=== PATIENT | female | born 1975 | race Caucasian/White ===

== ENCOUNTER → 2018-11-25 11:14 | Outpatient (CLI) | payer OTHER, SELFPAY ==
[2018-11-25 13:22] LABS: Urine N gonorrhoeae NOT DETECTED
[2018-11-25 13:25] LABS: Urine Chlamydia NOT DETECTED
== END ==
PROVIDERS: PCP Physician Assistant; Visit Provider Family Medicine
DX: Z11.3 Encounter for screening for infections with a predominantly sexual mode of transmission (principal)
CPT/HCPCS: 87491; 87591

== ENCOUNTER → 2018-12-06 09:32 | Outpatient (CLI) | payer OTHER, SELFPAY ==
--- NOTE | 2018-12-06 09:33 | DI.US.S_ITS ---
PROCEDURE: US PELVIC COMPLETE INDICATIONS: INTRAUTERINE DEVICE COMPLICATION TECHNIQUE: Real-time scanning was performed of the pelvic organs, with image documentation. Additional endovaginal scanning was necessary due to incomplete visualization of the adnexal and endometrial structures by transabdominal scanning. COMPARISON: None. FINDINGS: Transabdominal scanning: Limited scanning through the kidneys shows no hydronephrosis. No pathologic free abdominal or pelvic fluid. Endovaginal scanning: Uterus: Uterus is normal in size at 7.9 x 3.6 x 4.6 cm. The endometrium measures 6 mm in combined thickness. There is a 6 mm hyperechoic linear structure in the lower uterine segment 3.5 cm above the internal loss in the left aspect of the uterus embedded into the lateral wall of the myometrium. Ovaries: Right ovary measures 2.7 x 2.0 x 1.9 cm. There is a 2.1 x 1.5 x 1.5 cm thickwalled cyst in the left ovary. Left ovary measures 2.0 x 1.2 x 1.7 cm, which is in the lateral superior aspect of the cul-de-sac and only seen on transabdominal scanning. IMPRESSION: 1. A 6 mm hyperechoic linear structure is embedded in the left uterine wall, suspicious for retained foreign body (segment of the IUD). 2. A 2.1 x 1.5 x 1.5 thickwalled cyst in the right ovary, which may be a corpus luteal cyst or hemorrhagic cyst. If clinically indicated, a followup ultrasound may be considered in 6 weeks. Dictated by: Sam Crawford M.D. on 12/06/2018 at 10:54 Approved by: Sam Crawford M.D. on 12/06/2018 at 11:01
== END ==
PROVIDERS: PCP Physician Assistant; Visit Provider Family Medicine
DX: T83.9XXA Unspecified complication of genitourinary prosthetic device, implant and graft, initial encounter (principal); N83.201 Unspecified ovarian cyst, right side
CPT/HCPCS: 76830; 76856

== ENCOUNTER 2018-12-26 12:13 | Day surgery (SDC) | payer OTHER, SELFPAY ==
[2018-12-13 15:13] VITALS: BMI 34.8
[2018-12-26] VITALS (8 sets, daily range): BP systolic 87–106; BP diastolic 57–67; PULSE 47–61; RESP 14–17; TEMP 36.2–36.7; O2SAT 91–100; BMI 34.8
[2018-12-26] MEDS: LACTATED RINGERS 1,000 ML 42 ML IV (13:03)
--- NOTE | 2018-12-26 13:24 | PM.PREOP ---
Pre-operative Note Interval Note History & Physical reviewed/Exam performed by Physician: Yes Changes to H&P: No
--- NOTE | 2018-12-26 13:24 | PM.GYNHP.1 ---
History of Present Illness Reason for admission: other (Retained arm ParaGard IUD after removal, wish for replacement of ParaGard IUD) Narrative: Lenore Rose is a 43 year old female with a retained arm of ParaGard IUD after removal, requesting removal of the arm and replacement of ParaGard IUD [facility] Family History (Updated 05/13/16 @ 00:00 by Alicia Hess PA-C) Mother Osteoporosis Social History household members: spouse Smoking Status: Former smoker Tobacco: How many years used: 8 second hand exposure: No alcohol intake: current substance use type: does not use Family History (Updated 05/13/16 @ 00:00 by Alicia Hess PA-C) Mother Osteoporosis Social History household members: spouse Smoking Status: Former smoker Tobacco: How many years used: 8 second hand exposure: No alcohol intake: current substance use type: does not use Meds Home Medications Medication Instructions Recorded Confirmed Type [IUD - 10 YEAR] #0 05/13/16 History Allergies Allergy/AdvReac Type Severity Reaction Status Date / Time amoxicillin [AMOXICILLIN] Allergy Intermediate RASH ALL Verified 11/25/18 10:37 OVER MY ENTIRE BODY Penicillins [PENICILLINS] Allergy Intermediate RASH ALL Verified 11/25/18 10:37 OVER MY ENTIRE BODY Review of Systems Review of Systems Patient with irregular menses, no abdominal pain All systems reviewed & are unremarkable except as noted in HPI and below Exam Vital Signs (past 8 hours): - 12/26/18 12:55 Temperature 98.1 F Pulse Rate 50 L Respiratory Rate 16 Blood Pressure 89/57 L Pulse Oximetry 100 Oxygen Delivery Method Room Air Narrative Exam Narrative: HEENT exam within normal limits. Lungs are clear to auscultation percussion. Heart is regular rate and rhythm no S3-S4 or murmurs. Abdomen is soft, nontender. Pelvic exam not repeated but on previous exam normal external genitalia, vagina, cervix. Uterus is not enlarged, nontender. By ultrasound the IUD arm is on the anterior aspect of the uterus in the muscle wall above the internal os no adnexal masses tenderness Objective Imaging US - abdomen: Radiologist's impression: Retained arm of the IUD in the anterior wall of the uterus Assessment & Plan (1) Malpositioned IUD: Current visit: Yes Status: Acute (2) Encounter for IUD insertion: Current visit: Yes Status: Acute Assessment & Plan narrative: Patient with retained arm of ParaGard IUD after removal. Plan is to do a hysteroscopy if necessary resect a small area of the uterus to remove the retained IUD fragment. If this is successful the patient wishes to have a new ParaGard IUD placed. If not she does not want the IUD placed. The consent form was reviewed with the patient with the small risk of perforation of the uterus that would require laparoscopy and possible laparotomy to repair damage to any internal structures such as the bowel, bladder, ureters. Not enough risk for infection to require antibiotics. Reaction to medication or anesthetic. Consent form was signed. Questions were answered.
--- NOTE | 2018-12-26 14:28 | SUR.OPER ---
Lithotomy on padded OR bed, head on pillow, arms secured on padded arm boards at <90 degrees abduction. Legs secured in padded yellow fins stirrups.
--- NOTE | 2018-12-26 14:42 | PM.OP.1 ---
Operative Date/Time/Diagnoses Date of procedure: 12/26/18 Time of procedure: 14:42 Pre-op diagnosis: Retained arm of IUD, wish for new ParaGard IUD to be placed Post-op diagnosis: same Procedure & Clinicians Procedure: Hysteroscopy with removal of retained ParaGard arm and placement of new ParaGard IUD Same procedure as scheduled: Yes Indications: Patient who on removal of her prior ParaGard IUD had an arm that did not come off at the time of the rest of the IUD. If successful removing the arm patient wishes to have a new ParaGard IUD placed Surgeon: Lisa Ford Click Yes if Unassisted: Yes Anesthesia Type: General Operative Notes Findings: Normal exam under anesthesia, Partially imbedded arm of the ParaGard IUD, entire arm was resected without difficulty, successful placement of new ParaGard IUD Closure Type: not applicable Specimen(s): none sent Prosthetic devices, grafts, tissues, transplants, or devices: ParaGard IUD Estimated Blood Loss (mL): 20 Procedure in detail: The patient was brought to the operating room where she underwent general anesthesia. She was placed in low stirrups She was prepped and draped in usual sterile fashion with warming in place with blankets, no antibiotics were indicated, due to the short nature of the procedure pulsatile stockings were not indicated.. A single-tooth tenaculum was placed on the anterior lip of the cervix and the uterus dilated to #8 Hegar dilator. The hysteroscope was placed into the uterus with a sorbitol solution running and under constant suction. The IUD arm was seen and the resecting loop was activated which the IUD arm stuck to the resecting loop and was easily removed. The uterus was sounded and the new ParaGard IUD was placed and strings cut to 4 cm. The patient went to recovery room in good condition counts of instruments and sponges were correct. The sorbitol solution I=O approximately 1000 mL. Complications: none Condition: stable Disposition: same day surgery Plan for aftercare: Follow-up as needed.
--- NOTE | 2018-12-26 14:43 | SUR.PHASEI ---
report given to KENNEDY Almanza. Transferred care of pt to KENNEDY Almanza in stable condition at this time.
[2018-12-26] MEDS: KETOROLAC 30 MG/ML VIAL IV (14:45)
--- NOTE | 2018-12-26 15:40 | SUR.PHASEII ---
pt observed to have moderate amount of bright red blood on amber-pad upon ambulating to the bathroom. Dr. Ford at bedside to observe drainage amount on amber-pad. Per Dr. Ford, pt ok to be discharged to home at this time. Pt instructed to call if saturating more than one pad an hour. pt and pt voiced understanding.
== END 2018-12-26 15:44 | disposition home or self-care (01) ==
PROVIDERS: PCP Physician Assistant; Visit Provider Specialist
PROC: (CPT 58562; principal; 2018-12-26 13:30)
DX: T83.32XA Displacement of intrauterine contraceptive device, initial encounter (principal); Z30.430 Encounter for insertion of intrauterine contraceptive device
CPT/HCPCS: 58562; 58300; J1885; J2250; J2405; J2704; J3010; J7300

== ENCOUNTER 2018-12-26 21:04 | Emergency (ER) | payer OTHER, SELFPAY ==
--- NOTE | 2018-12-26 21:08 | DI.US.S_ITS ---
PROCEDURE: US PELVIC COMPLETE INDICATIONS: BLEEDING, CRAMPING TECHNIQUE: Real-time scanning was performed of the pelvic organs, with image documentation. Additional endovaginal scanning was necessary due to incomplete visualization of the adnexal and endometrial structures by transabdominal scanning. COMPARISON: [facility], , PELVIC COMPLETE, 12/06/2018, 9:57. FINDINGS: Transabdominal scanning: Limited scanning through the kidneys shows no hydronephrosis. No pathologic free abdominal or pelvic fluid. Anteverted anteflexed uterus demonstrates an IUD in expected location. Endovaginal scanning: Uterus: Uterus is normal in size at 8.1 x 3.6 x 4.7 cm. The endometrium is not thickened and contains an IUD in appropriate position. There is small amount of heterogeneous, avascular material within the fundal endometrium. Ovaries: The right ovary measures 2.8 x 2.2 x 2.4 cm and contains a dominant follicle measuring 15 mm. There is appropriate vascularity to the right ovary. No adjacent fluid. Left ovary was not identified. No unusual adnexal masses or free fluid. IMPRESSION: 1. IUD in expected location with small amounts of adjacent heterogeneous material, potentially blood products. No thickening of the endometrium. 2. Physiologic right ovarian follicles. Concordant with preliminary results. Dictated by: Marilou Whaley M.D. on 12/27/2018 at 9:12 Approved by: Marilou Whaley M.D. on 12/27/2018 at 9:16
[2018-12-26 21:11] VITALS: BP 129/77; PULSE 85; RESP 20; TEMP 36.7; O2SAT 98; BMI 31.7
--- NOTE | 2018-12-26 21:58 | PC.NURSE ---
Just had an IUD removed in the OR due to it being partially embedded. Had a new one placed at same time. Has been bleeding copiously ever since getting home. Using a large pad an hour. Denies any significant pain. Denies dizziness or lightheadedness.
[2018-12-26 22:21] LABS: Hematocrit 38.7 % (36-46)
--- NOTE | 2018-12-26 22:28 | ED.FEMALEGU ---
HPI - Female Genitourinary General Chief complaint: Vaginal Bleeding Stated complaint: BLEEDING AFTER SURGERY Time Seen by Provider: 12/26/18 21:06 Source: patient and family Mode of arrival: ambulatory Limitations: no limitations History of Present Illness HPI Narrative: 43-year-old female nonsmoker presents with her in the chief complaint of significant vaginal bleeding, as much as 2-3 pads per hour for the past few hours. She was seen by OB Gyne earlier today and had an IUD that had been causing her trouble removed and a new 1 replaced. The procedure went finding well and she was discharged without any trouble. She started developing increasingly heavy bleeding over the past few hours and was told to present to the emergency department when she called nursing hotline. She has mild to moderate generalized pelvic cramping. She is not dizzy nor weak or lightheaded. MD Complaint: vaginal bleeding Onset (ago): hour(s) Location: suprapubic Severity: moderate Quality: Aching Duration: constant Relieving factors: none Exacerbating factors: none Vaginal discharge: dark blood and blood clots Associated symptoms: denies other symptoms Related Data Home Medications Medication Instructions Recorded Confirmed [IUD - 10 YEAR] #0 05/13/16 Allergies Allergy/AdvReac Type Severity Reaction Status Date / Time amoxicillin [AMOXICILLIN] Allergy Intermediate RASH ALL Verified 11/25/18 10:37 OVER MY ENTIRE BODY Penicillins [PENICILLINS] Allergy Intermediate RASH ALL Verified 11/25/18 10:37 OVER MY ENTIRE BODY Review of Systems Constitutional Denies chills, Denies fever(s), Denies lethargy and Denies weakness Eyes Denies change in vision, Denies eye discharge, Denies irritation and Denies loss of vision ENT Ears, Nose, Mouth, and Throat: Denies change in voice, Denies neck pain and Denies sore throat Cardiovascular Denies chest pain, Denies irregular heart rhythm, Denies lightheadedness, Denies palpitations, Denies dyspnea, Denies dyspnea on exertion and Denies orthopnea Respiratory Denies cough, Denies dyspnea, Denies dyspnea on exertion and Denies wheezing Gastrointestinal Gastrointestinal: Denies abdominal pain, Denies change in bowel habits, Denies diarrhea, Denies nausea and Denies vomiting Genitourinary Reports abnormal vaginal bleeding, Denies hematuria, Denies flank pain, Denies urinary incontinence and Denies urinary urgency Musculoskeletal Denies neck pain Integumentary/Breasts Denies pruritus, Denies erythema, Denies rash and Denies wounds Neurologic Denies confusion, Denies loss of vision and Denies weakness Psychiatric Denies anxiety, Denies confusion, Denies depression, Denies homicidal ideation and Denies suicidal ideation Endocrine Denies palpitations Hematologic/Lymphatic Denies easy bruising Allergic/Immunologic Denies wheezing PFSH Family History (Updated 05/13/16 @ 00:00 by Alicia Hess PA-C) Mother Osteoporosis Social History household members: spouse Smoking Status: Former smoker Tobacco: How many years used: 8 second hand exposure: No alcohol intake: current substance use type: does not use Family History Mother Osteoporosis Social History household members: spouse Smoking Status: Former smoker Tobacco: How many years used: 8 second hand exposure: No alcohol intake: current substance use type: does not use Exam Narrative Exam Narrative: GENERAL: This is a well-nourished, well-developed patient, in mild distress. HEAD: Atraumatic. Normocephalic. No temporal or scalp tenderness. EYES: Pupils equal round and reactive. Extraocular motions intact. No scleral icterus. No injection or drainage. ENT: Nose without bleeding, purulent drainage or septal hematoma. Throat without erythema, tonsillar hypertrophy or exudate. Uvula midline. Airway patent. NECK: Trachea midline. No JVD or lymphadenopathy. Supple, nontender, no meningeal signs. CARDIOVASCULAR: Regular rate and rhythm without murmurs, gallops, or rubs. RESPIRATORY: Clear to auscultation. Breath sounds equal bilaterally. No wheezes, rales, or rhonchi. GASTROINTESTINAL: Abdomen soft, non-tender, nondistended. No hepato-splenomegaly, or palpable masses. No guarding. PELVIC: Steady dark blood VS cervical os, IUD string visible EXTREMITIES: No clubbing, cyanosis, or edema. No joint tenderness, effusion, or edema noted. BACK: Nontender without deformity or crepitance. No flank tenderness. NEURO: AOx3. SKIN: No rash or erythema. Initial Vital Signs Initial Vital Signs: Vital Signs Temperature 98.0 F 12/26/18 21:11 Pulse Rate 85 12/26/18 21:11 Respiratory Rate 20 06/24/19 21:11 Blood Pressure 129/77 12/26/18 21:11 Pulse Oximetry 98 12/26/18 21:11 Course Orders Ordered: ED Orders 12/26/18 21:08 US pelvic complete Stat 12/26/18 22:15 Hemoglobin and Hematocrit Stat Discontinued Medications Indomethacin (Indocin) 50 mg PO NOW ONE Stop: 12/26/18 22:54 Last Admin: 12/26/18 23:13 Dose: 50 mg Methylergonovine Maleate (Methergine) 0.2 mg IM NOW ONE Stop: 12/26/18 22:54 Last Admin: 12/26/18 23:13 Dose: 0.2 mg Consultations Consultation #1: discussion with Dr. Salguero, whom has contacted Dr. Rodriguez to discuss the case. He recommends Methergine 0.2mg IM and Indomethacin 50mg PO and to follow up in the [facility] Vital Signs - 8 hr 12/26/18 21:11 12/26/18 22:40 12/26/18 23:58 Temperature 98.0 F Pulse Rate 85 72 80 Respiratory Rate 20 16 18 Blood Pressure 129/77 106/56 L Blood Pressure [Left Arm] 121/55 L Pulse Oximetry 98 94 96 MDM - Female Genitourinary Lab Data Result diagrams: 12/26/18 22:15 Lab Results 12/26/18 Range/Units 22:15 Hgb 13.0 (12.0-16.0) g/dL Hct 38.7 (36-46) % MDM Narrative Medical decision making narrative: Patient presents with heavy vaginal bleeding and some mild cramping this evening. She had her IUD replaced earlier today. She had contacted Dr. Salguero and was instructed to present to the ED. Patient is hemodynamically stable and H/H is stable. Bleeding is moderate and dark. US is unremarkable. Consultation with chief port director and recommendations followed. Patient and have had their questions answered to their apparent satisfaction. They understand the discharge diagnosis and plan. They understand return precautions. Discharge Plan Departure Patient Disposition: Home Clinical Impression: Vaginal bleeding Discharge Date/Time: 12/26/18 23:58 Interventions: ED Discharge Assessment Last Done: 12/26/18 23:58 Instructions: DI for Vaginal Bleeding Activity Restrictions/Additional Instructions: *You have been diagnosed with [vaginal bleeding and cramping after IUD change] *What to do: *Take medications as directed: Tylenol or Motrin for pain *Follow up with Dr. Rodriguez in the office tomorrow, call for an appointment. He suggests calling at 8am. Let them know you were seen in the Emergency Department and that we ask that you be seen in follow up *Return to ER if you should have any new, worsening or concerning symptoms Prescriptions: No Action [IUD - 10 YEAR] Qty: 0 RF: 0 Referrals: Alicia Hess PA-C [Primary Care Provider] -
--- NOTE | 2018-12-26 22:36 | ED_ITS ---
HPI - Female Genitourinary General Chief complaint: Vaginal Bleeding Stated complaint: BLEEDING AFTER SURGERY Time Seen by Provider: 12/26/18 21:06 Source: patient and family Mode of arrival: ambulatory Limitations: no limitations History of Present Illness HPI Narrative: 43-year-old female nonsmoker presents with her in the chief complaint of significant vaginal bleeding, as much as 2-3 pads per hour for the past few hours. She was seen by OB Gyne earlier today and had an IUD that had been causing her trouble removed and a new 1 replaced. The procedure went finding well and she was discharged without any trouble. She started developing increasingly heavy bleeding over the past few hours and was told to present to the emergency department when she called nursing hotline. She has mild to moderate generalized pelvic cramping. She is not dizzy nor weak or lightheaded. MD Complaint: vaginal bleeding Onset (ago): hour(s) Location: suprapubic Severity: moderate Quality: Aching Duration: constant Relieving factors: none Exacerbating factors: none Vaginal discharge: dark blood and blood clots Associated symptoms: denies other symptoms Related Data Home Medications Medication Instructions Recorded Confirmed [IUD - 10 YEAR] #0 05/13/16 Allergies Allergy/AdvReac Type Severity Reaction Status Date / Time amoxicillin [AMOXICILLIN] Allergy Intermediate RASH ALL Verified 11/25/18 10:37 OVER MY ENTIRE BODY Penicillins [PENICILLINS] Allergy Intermediate RASH ALL Verified 11/25/18 10:37 OVER MY ENTIRE BODY Review of Systems Constitutional Denies chills, Denies fever(s), Denies lethargy and Denies weakness Eyes Denies change in vision, Denies eye discharge, Denies irritation and Denies loss of vision ENT Ears, Nose, Mouth, and Throat: Denies change in voice, Denies neck pain and Denies sore throat Cardiovascular Denies chest pain, Denies irregular heart rhythm, Denies lightheadedness, Denies palpitations, Denies dyspnea, Denies dyspnea on exertion and Denies orthopnea Respiratory Denies cough, Denies dyspnea, Denies dyspnea on exertion and Denies wheezing Gastrointestinal Gastrointestinal: Denies abdominal pain, Denies change in bowel habits, Denies diarrhea, Denies nausea and Denies vomiting Genitourinary Reports abnormal vaginal bleeding, Denies hematuria, Denies flank pain, Denies urinary incontinence and Denies urinary urgency Musculoskeletal Denies neck pain Integumentary/Breasts Denies pruritus, Denies erythema, Denies rash and Denies wounds Neurologic Denies confusion, Denies loss of vision and Denies weakness Psychiatric Denies anxiety, Denies confusion, Denies depression, Denies homicidal ideation and Denies suicidal ideation Endocrine Denies palpitations Hematologic/Lymphatic Denies easy bruising Allergic/Immunologic Denies wheezing PFSH Family History (Updated 05/13/16 @ 00:00 by Alicia Hess PA-C) Mother Osteoporosis Social History household members: spouse Smoking Status: Former smoker Tobacco: How many years used: 8 second hand exposure: No alcohol intake: current substance use type: does not use Family History Mother Osteoporosis Social History household members: spouse Smoking Status: Former smoker Tobacco: How many years used: 8 second hand exposure: No alcohol intake: current substance use type: does not use Exam Narrative Exam Narrative: GENERAL: This is a well-nourished, well-developed patient, in mild distress. HEAD: Atraumatic. Normocephalic. No temporal or scalp tenderness. EYES: Pupils equal round and reactive. Extraocular motions intact. No scleral icterus. No injection or drainage. ENT: Nose without bleeding, purulent drainage or septal hematoma. Throat without erythema, tonsillar hypertrophy or exudate. Uvula midline. Airway patent. NECK: Trachea midline. No JVD or lymphadenopathy. Supple, nontender, no meningeal signs. CARDIOVASCULAR: Regular rate and rhythm without murmurs, gallops, or rubs. RESPIRATORY: Clear to auscultation. Breath sounds equal bilaterally. No wheezes, rales, or rhonchi. GASTROINTESTINAL: Abdomen soft, non-tender, nondistended. No hepato- splenomegaly, or palpable masses. No guarding. PELVIC: Steady dark blood VS cervical os, IUD string visible EXTREMITIES: No clubbing, cyanosis, or edema. No joint tenderness, effusion, or edema noted. BACK: Nontender without deformity or crepitance. No flank tenderness. NEURO: AOx3. SKIN: No rash or erythema. Initial Vital Signs Initial Vital Signs: Vital Signs Temperature 98.0 F 12/26/18 21:11 Pulse Rate 85 12/26/18 21:11 Respiratory Rate 20 06/24/19 21:11 Blood Pressure 129/77 12/26/18 21:11 Pulse Oximetry 98 12/26/18 21:11 Course Orders Ordered: ED Orders 12/26/18 21:08 US pelvic complete Stat 12/26/18 22:15 Hemoglobin and Hematocrit Stat Discontinued Medications Indomethacin (Indocin) 50 mg PO NOW ONE Stop: 12/26/18 22:54 Last Admin: 12/26/18 23:13 Dose: 50 mg Methylergonovine Maleate (Methergine) 0.2 mg IM NOW ONE Stop: 12/26/18 22:54 Last Admin: 12/26/18 23:13 Dose: 0.2 mg Consultations Consultation #1: discussion with Dr. Salguero, whom has contacted Dr. Rodriguez to dis cuss the case. He recommends Methergine 0.2mg IM and Indomethacin 50mg PO and to follow up in the [facility] Vital Signs - 8 hr 12/26/18 21:11 12/26/18 22:40 12/26/18 23:58 Temperature 98.0 F Pulse Rate 85 72 80 Respiratory Rate 20 16 18 Blood Pressure 129/77 106/56 L Blood Pressure [Left Arm] 121/55 L Pulse Oximetry 98 94 96 MDM - Female Genitourinary Lab Data Result diagrams: 12/26/18 22:15 Lab Results 12/26/18 Range/Units 22:15 Hgb 13.0 (12.0-16.0) g/dL Hct 38.7 (36-46) % [facility] Narrative Medical decision making narrative: Patient presents with heavy vaginal bleeding and some mild cramping this evening. She had her IUD replaced earlier today. She had contacted Dr. Salguero and was instructed to present to the ED. Patient is hemodynamically stable and H/H is stable. Bleeding is moderate and dark. US is unremarkable. Consultation with solar engineer and recommendations followed. Patient and have had their questions answered to their apparent satisfaction. They understand the discharge diagnosis and plan. They understand return precautions. Discharge Plan Departure Patient Disposition: Home Clinical Impression: Vaginal bleeding Discharge Date/Time: 12/26/18 23:58 Interventions: ED Discharge Assessment Last Done: 12/26/18 23:58 Instructions: DI for Vaginal Bleeding Activity Restrictions/Additional Instructions: *You have been diagnosed with [vaginal bleeding and cramping after IUD change] *What to do: *Take medications as directed: Tylenol or Motrin for pain *Follow up with Dr. Rodriguez in the office tomorrow, call for an appointment. He suggests calling at 8am. Let them know you were seen in the Emergency Department and that we ask that you be seen in follow up *Return to ER if you should have any new, worsening or concerning symptoms Prescriptions: No Action [IUD - 10 YEAR] Qty: 0 RF: 0 Referrals: Alicia Hess PA-C [Primary Care Provider] -
[2018-12-26 22:40] VITALS: BP 121/55; PULSE 72; RESP 16; O2SAT 94
[2018-12-26] MEDS: METHYLERGONOVINE 0.2 MG/ML VIAL IM (23:13)
[2018-12-26] MEDS: INDOMETHACIN 25 MG CAPSULE 50 MG PO (23:13)
[2018-12-26 23:58] VITALS: BP 106/56; PULSE 80; RESP 18; O2SAT 96
== END 2018-12-26 23:58 | disposition home or self-care (01) ==
PROVIDERS: Emergency Provider Emergency Medicine; PCP Physician Assistant
DX: N93.9 Abnormal uterine and vaginal bleeding, unspecified (principal)
CPT/HCPCS: 76830; 76856; 85014; 85018; 96372; 99283; J2210